=== PATIENT | female | born 1965 | race Caucasian/White ===

== ENCOUNTER 2016-08-15 10:29 | Emergency (ER) | payer BC ==
[~2016-08-15] VITALS: Ht 165.1 cm; Wt 74.0 kg
[2016-08-15 10:38] VITALS: Ht 165.1 cm; Wt 74.0 kg
[2016-08-15] MEDS ORDERED: OXYC1TAB3 PO (11:36)
[2016-08-15 12:19] LABS: BASO % 0.2 %; BASO ABS # 0.02 K/uL (0-0.2); COMPLETE YES; EOS % 0.3 %; HEMATOCRIT 43.8 % (37-47); IG% 0.4 %; LYMPH % 8.6 %; LYMPH ABS # 0.83 K/uL (1.2-3.4); MEAN CELL VOLUME 94.8 fL (80-100); MEAN CORPUSCULAR HEMOGLOBIN 32.5 pg (25-34); MEAN CORPUSCULAR HGB CONC 34.2 g/dl (32-36); NEUT % 82.5 %; PLATELET COUNT 118 K/uL (130-400); RED BLOOD COUNT 4.62 M/uL (4.2-5.4)
[2016-08-15 12:24] LABS: INR 1.2 (0.9-1.1); PARTIAL THROMBOPLASTIN RATIO 1.3; PROTHROMBIN TIME (PATIENT) 13.4 SECONDS (9.0-12.0)
[2016-08-15 12:30] LABS: BUN/CREATININE RATIO 16.2 (10-20); CALCIUM 9.4 mg/dl (8.5-10.1); CREATININE 0.85 mg/dl (0.60-1.20); POTASSIUM 4.3 mmol/L (3.5-5.1)
--- NOTE | 2016-08-15 12:30 | EMERGENCY ROOM VISIT NOTE ---
History Report prepared by Primitivo: Mackenzie Murray Under the Supervision of: Dr. Bill Nath D.O. First contact with patient: 11:53 Chief Complaint: REFERRED BY DOCTOR Stated Complaint: FLUID IN ABDOMIN, HAS BREAST CANCER History of Present Illness The patient is a 51 year old female who presents to the Emergency Room with complaints of persistent abdominal distention starting about 4 days ago. She reports some chest tightness but denies any difficulty breathing. She is currently not in any pain. She denies any fevers, chills, chest pain, abdominal pain, urinary symptoms, or any other complaints. The patient has a history of breast cancer with metastasis to liver which was diagnosed last year. She is not actively receiving treatment anymore. Her last chemotherapy treatment was about a week and a half ago. She denies any radiation treatment. She is not currently on any blood thinners. She had an ultrasound last week which showed gallstones but was otherwise negative. She was referred to the Emergency Room by her oncologist for a possible paracentesis procedure. If needed, the patient does not want CPR and she does not have a living will. Source of History: patient Onset: about 4 days ago Position: abdomen Symptom Intensity: No pain currently Quality: other (distention) Timing: other (persistent) Associated Symptoms: No SOB, No abdominal pain, No chest pain, No chills, No fevers, No urinary symptoms Review of Systems See above for pertinent positives & negatives. A total of 10 systems reviewed and were otherwise negative. Past Medical & Surgical Medical Problems: (1) Breast cancer metastasized to liver Family History Patient reports no known family medical history. Social History Smoking Status: Former Smoker Marital Status: Occupation Status: employed Current/Historical Medications Scheduled PRN Oxycodone Ir (Roxicodone Ir), 5 MG PO Q4H PRN for Severe Pain Allergies Coded Allergies: No Known Allergies (Unverified , 08/15/16) Physical Exam Vital Signs Date Time Temp Pulse Resp B/P Pulse Ox O2 Delivery O2 Flow Rate FiO2 08/15/16 14:53 106 18 121/79 94 Room Air 08/15/16 14:16 37.1 116 116/88 97 08/15/16 13:27 37.2 120 123/81 95 08/15/16 12:24 117 18 111/95 94 Room Air 3/23/17 10:38 36.8 134 18 118/82 95 Room Air Physical Exam GENERAL: Patient is well appearing and in no acute distress. HEENT: No acute trauma, normocephalic atraumatic, mucous membranes moist, no nasal congestion, scleral icterus. NECK: No stridor, no adenopathy, no meningismus, trachea is midline. LUNGS: No dyspnea. Clear to auscultation and equal bilaterally. No wheeze, no rhonchi. HEART: Tachycardic rate and normal rhythm. No murmurs, rubs, gallops appreciated. ABDOMEN: Soft, protruded abdomen with positive fluid waves, nontender, bowel sounds positive, no masses appreciated, no peritonitis. BACK: No midline tenderness, no CVA tenderness EXTREMITIES: Normal motion all extremities, no cyanosis, no peripheral edema. NEUROLOGIC: Alert and oriented, no acute motor or sensory deficits, no focal weakness, cranial nerves grossly intact. SKIN: No rash, no jaundice, no diaphoresis. Medical Decision & Procedures ER Provider Diagnostic Interpretation: Xray results as stated below per my and radiologist interpretation: CHEST 2 VIEWS ROUTINE HISTORY: effusion, stage 4 breast CA COMPARISON: PET CT 10/06/2013. FINDINGS: No pneumothorax. Left subclavian Port-A-Cath terminates in the proximal SVC. The heart is normal in size. There are innumerable bilateral pulmonary nodules consistent with metastatic disease. Mild elevation of the right hemidiaphragm, unchanged. Cholelithiasis. Suspect trace bilateral pleural effusions. IMPRESSION: 1. Innumerable bilateral pulmonary nodules consistent with metastatic disease. 2. Mild elevation of the right hemidiaphragm which is not significantly changed. 3. Suspect trace bilateral pleural effusions. Electronically signed by: Yemi Cam M.D. 08/15/2016 1:04 PM Dictated Date/Time: 08/15/2016 1:02 PM As per my interpretation; Diffuse widespread metastatic disease. Laboratory Results 08/15/16 11:43 Red Blood Count 4.62, Mean Corpuscular Volume 94.8, Mean Corpuscular Hemoglobin 32.5, Mean Corpuscular Hemoglobin Concent 34.2, Mean Platelet Volume 10.0, Neutrophils (%) (Auto) 82.5, Lymphocytes (%) (Auto) 8.6, Monocytes (%) (Auto) 8.0, Eosinophils (%) (Auto) 0.3, Basophils (%) (Auto) 0.2, Neutrophils # (Auto) 7.91, Lymphocytes # (Auto) 0.83, Monocytes # (Auto) 0.77, Eosinophils # (Auto) 0.03, Basophils # (Auto) 0.02 08/15/16 11:43 Test 08/15/16 11:43 08/15/16 14:13 White Blood Count 9.60 K/uL (4.8-10.8) Red Blood Count 4.62 M/uL (4.2-5.4) Hemoglobin 15.0 g/dL (12.0-16.0) Hematocrit 43.8 % (37-47) Mean Corpuscular Volume 94.8 fL (80-100) Mean Corpuscular Hemoglobin 32.5 pg (25-34) Mean Corpuscular Hemoglobin Concent 34.2 g/dl (32-36) Platelet Count 118 K/uL (130-400) Mean Platelet Volume 10.0 fL (7.4-10.4) Neutrophils (%) (Auto) 82.5 % Lymphocytes (%) (Auto) 8.6 % Monocytes (%) (Auto) 8.0 % Eosinophils (%) (Auto) 0.3 % Basophils (%) (Auto) 0.2 % Neutrophils # (Auto) 7.91 K/uL (1.4-6.5) Lymphocytes # (Auto) 0.83 K/uL (1.2-3.4) Monocytes # (Auto) 0.77 K/uL (0.11-0.59) Eosinophils # (Auto) 0.03 K/uL (0-0.5) Basophils # (Auto) 0.02 K/uL (0-0.2) RDW Standard Deviation 61.7 fL (36.4-46.3) RDW Coefficient of Variation 17.9 % (11.5-14.5) Immature Granulocyte % (Auto) 0.4 % Immature Granulocyte # (Auto) 0.04 K/uL (0.00-0.02) Prothrombin Time 13.4 SECONDS (9.0-12.0) Prothromb Time International Ratio 1.2 (0.9-1.1) Activated Partial Thromboplast Time 33.1 SECONDS (21.0-31.0) Partial Thromboplastin Ratio 1.3 Anion Gap 12.0 mmol/L (3-11) Est Creatinine Clear Calc Drug Dose 79.7 ml/min Estimated GFR () 92.6 Estimated GFR (Non- 79.9 BUN/Creatinine Ratio 16.2 (10-20) Calcium Level 9.4 mg/dl (8.5-10.1) Total Bilirubin 5.5 mg/dl (0.2-1) Direct Bilirubin 2.2 mg/dl (0-0.2) Aspartate Amino Transf (AST/SGOT) 136 U/L (15-37) Alanine Aminotransferase (ALT/SGPT) 38 U/L (12-78) Alkaline Phosphatase 571 U/L (45-117) Total Protein 7.3 gm/dl (6.4-8.2) Albumin 3.0 gm/dl (3.4-5.0) Lipase 100 U/L (73-393) Peritoneal Fluid Total Protein 2.0 g/dl Peritoneal Fluid Albumin 1.1 g/dl Peritoneal Fluid LDH 126 IU Peritoneal Fluid Glucose 89 mg/dl Peritoneal Fluid Amylase 12 U/L Peritoneal Fluid Lipase 30 U/L Laboratory results as reviewed by me. Medications Administered Medications (Trade) Dose Ordered Sig/Rhoda Route Start Time Stop Time Status Last Admin Dose Admin Albumin Human (Albumin 25%) 25 gm ONE ONCE IV 08/15/16 13:15 08/15/16 13:16 DC 08/15/16 13:27 25 GM Procedure Limited bedside ultrasound: DVT 2 point compression negative. Procedure Date: 08/15/2016 Procedure: Diagnostic and therapeutic paracentesis Pre-procedure Diagnosis: Ascites Post-procedure Diagnosis: same as above Prior to Procedure: Informed Consent: The risks, benefits, indications, potential complications, and alternatives were explained to the patient and informed consent obtained. Attending Staff: Shannon Nath DO Skin Prep: Cleansed with chlorhexidine. Anesthesia: Lidocaine 1% without epinephrine 1 mL Indications: Metastatic breast cancer with reported metastases to the liver and new onset ascites, respiratory difficulties secondary to elevated diaphragm. The identity of the patient was confirmed and a bedside time out was performed. Description of Procedure: Static ultrasound guidance was used, the right lower quadrant was sterilized with chlorhexidine and a full sterile barrier precautions, the skin and subcutaneous tissue was infiltrated with local anesthetic. A 7 [place] central venous catheter was inserted into the peritoneal space. 800 MLS of dark yellow peritoneal fluid was removed Specimens: Sent for Gram stain and culture, cell count, cytology total protein amylase LDH Findings: 800 mL ascitic fluid removed Estimated blood loss: 0 Complications: Patient tolerated the procedure well ED Course 1153: The patient was evaluated in room C03. A complete history and physical exam was performed. 1315: Albumin Human 25 gm IV 1328: I performed paracentesis. Refer to procedure note for further details. 1415: The patient feels much better. 1459: Reevaluated the patient. Discussed results and discharge instructions: She verbalized understanding and agreement. The patient is ready for discharge. Medical Decision Differential diagnosis includes but is not limited to PE, portal venous thrombus , progression of metastatic disease, Hepatic insufficiency, hepatitis C, CHF. Impression Primary Impression: Breast cancer metastasized to liver Additional Impressions: Ascites Bilateral pleural effusion Thrombocytopenia Transaminitis Elevated serum alkaline phosphatase level Scribe Attestation The scribe's documentation has been prepared under my direction and personally reviewed by me in its entirety. I confirm that the note above accurately reflects all work, treatment, procedures, and medical decision making performed by me. Departure Information Dispostion Home / Self-Care Referrals No Doctor Assigned Forms HOME CARE DOCUMENTATION FORM, IMPORTANT VISIT INFORMATION, WORK / SCHOOL INSTRUCTIONS Patient Instructions My [facility], Paracentesis Additional Instructions Your platelets today were 118. Total bilirubin 5.5, direct bilirubin 2.2 Your AST, liver function test was elevated at 136, your alkaline phosphatase was 571. Your albumin was mildly low at 3.0 You underwent a paracentesis today and 800 mL of fluid was removed. This fluid was sent for cytology it will take several days for the results, request these results to be forwarded to your oncologist. Return immediately for severe abdominal pain, fevers greater than 101, or any other concerns. You want to have a low salt diet and limit your fluid intake to around 2 L a day. Problem Qualifiers
--- NOTE | 2016-08-15 13:05 | DIAGNOSTIC IMAGING REPORT ---
CHEST 2 VIEWS ROUTINE HISTORY: effusion, stage 4 breast CA COMPARISON: PET CT 10/06/2013. FINDINGS: No pneumothorax. Left subclavian Port-A-Cath terminates in the proximal SVC. The heart is normal in size. There are innumerable bilateral pulmonary nodules consistent with metastatic disease. Mild elevation of the right hemidiaphragm, unchanged. Cholelithiasis. Suspect trace bilateral pleural effusions. IMPRESSION: 1. Innumerable bilateral pulmonary nodules consistent with metastatic disease. 2. Mild elevation of the right hemidiaphragm which is not significantly changed. 3. Suspect trace bilateral pleural effusions. Electronically signed by: Yemi Cam M.D. 08/15/2016 1:04 PM Dictated Date/Time: 08/15/2016 1:02 PM
[2016-08-15] MEDS ORDERED: ALBUMIN HUMAN 25% 12.5 GM/50 ML VIAL IV ONE (13:15)
[2016-08-15 14:16] VITALS: TEMP 37.1
[2016-08-15 15:18] VITALS: BP 121/79; PULSE 106; O2SAT 94
[2016-08-15 15:22] LABS: PERIT FL WBC 221 /uL (0-300); PERITONEAL FLUID RBC < 3000 /uL
== END 2016-08-15 15:18 | disposition home or self-care (01) ==
LOC: C.EDB 10:31 → C.EDC 15:18
DX: C50.919 Malignant neoplasm of unspecified site of unspecified female breast (principal); C78.7 Secondary malignant neoplasm of liver and intrahepatic bile duct; R18.8 Other ascites; J90 Pleural effusion, not elsewhere classified; D69.6 Thrombocytopenia, unspecified; R74.0 Nonspecific elevation of levels of transaminase and lactic acid dehydrogenase [LDH]; R74.8 Abnormal levels of other serum enzymes; Z87.891 Personal history of nicotine dependence

== ENCOUNTER 2016-08-27 10:40 | Emergency (ER) | payer BC ==
[~2016-08-27] VITALS: Ht 165.1 cm; Wt 74.5 kg
[~2016-08-27 10:40] MED LIST: OXYC1TAB3 PO
[2016-08-27 10:46] VITALS: Ht 165.1 cm; Wt 74.5 kg
--- NOTE | 2016-08-27 11:32 | EMERGENCY ROOM VISIT NOTE ---
History Report prepared by Primitivo: Ny Castro Under the Supervision of: Dr. Mushtaq Sullivan M.D. First contact with patient: 11:18 Chief Complaint: ABDOMINAL PAIN Stated Complaint: ABDOMINAL PAIN History of Present Illness The patient is a 51 year old female who presents to the Emergency Room with complaints of persistent diffuse abdominal pain that began a few days ago. She also complains of abdominal distension. The patient has a history of breast cancer with metastasis to the liver. [facility] [place]. The patient does not have an oncologist or PCP locally. She had a bilateral mastectomy. The patient was being treated for her cancer with chemotherapy, but it is on hold due to her abdominal problems. She was in the emergency room August 15 with similar symptoms and had paracentesis performed in the ED and was discharged home. The patient has not noticed any recent skin or eye color changes. Denies leg swelling or other complaints. Source of History: patient Onset: a few days ago Position: abdomen Timing: other (persistent) Note: Other symptoms: abdominal distension Review of Systems All systems have been listed, reviewed, and are negative other than those previously mentioned. Please see Additional Medical History Sheet. Past Medical & Surgical Medical Problems: (1) Breast cancer metastasized to liver Family History Patient reports no known family medical history. Social History Smoking Status: Former Smoker Marital Status: Occupation Status: employed Current/Historical Medications Scheduled PRN Oxycodone Ir (Roxicodone Ir), 5 MG PO Q4H PRN for Severe Pain Allergies Coded Allergies: No Known Allergies (Unverified , 08/27/16) Physical Exam Vital Signs Date Time Temp Pulse Resp B/P Pulse Ox O2 Delivery O2 Flow Rate FiO2 08/27/16 16:47 95 20 99/66 92 08/27/16 16:00 105/80 08/27/16 15:40 124 28 94 08/27/16 15:30 99/75 08/27/16 15:12 94 16 98/74 95 Room Air 08/27/16 15:10 117 32 94 08/27/16 15:09 98/74 08/27/16 14:03 96 20 103/85 92 Room Air 08/27/16 14:01 103/85 08/27/16 13:40 107 26 93 08/27/16 13:10 110 32 93 08/27/16 13:06 94 T-piece 08/27/16 13:01 110 08/27/16 12:54 104/74 08/27/16 12:51 114 16 104/74 98 Room Air 08/27/16 10:46 118 20 124/84 95 Room Air Physical Exam GENERAL: Patient awake, alert, oriented x 3. Patient is in no significant distress. Patient follows commands. Patient does not appear toxic. Patient is adequately hydrated and well-nourished. SKIN: No erythema, pallor, cyanosis or rash. Patient appears slightly jaundiced. HEENT: Normal head, pupils equal, reactive to light and accommodation. Patient has scleral icterus. Ears normal. Oral cavity and posterior pharynx appear normal. Neck: Without adenopathy, no neck vein distention. LUNGS: Clear to auscultation. No wheezes, no rales, no rhonchi. HEART: No murmurs. No gallops. No rubs ABDOMEN: Ascites with a fluid wave.Nontender. No masses, no rebound, no hepatomegaly or splenomegaly. EXTREMITIES: No signs of trauma. No pedal or pretibial edema. No calf or thigh tenderness. NEUROLOGIC: Cranial nerves II-XII within normal limits. No gross motor sensory function deficits. Medical Decision & Procedures ER Provider Diagnostic Interpretation: Radiology results as stated below per my review and radiologist interpretation: PARACENTESIS UNDER ULTRASOUND GUIDANCE CLINICAL HISTORY: ascites COMPARISON STUDY: No previous studies for comparison. FINDINGS: The risks, benefits, and alternatives to the procedure were discussed with the patient. Written informed consent was obtained. Following real-time ultrasound localization, the skin was prepped and draped. Following local anesthesia with Xylocaine, the sheath paracentesis needle was inserted and approximately 2 liters of straw-colored fluid was removed by vacuum suction. 1 L was sent to the laboratory. A left lower quadrant approach was utilized. The patient tolerated the procedure well and left the department in satisfactory condition. IMPRESSION: Successful ultrasound-guided paracentesis with removal of approximately 2 liters of ascitic fluid. Electronically signed by: Daniele Clement M.D. 08/27/2016 3:03 PM Dictated Date/Time: 08/27/2016 3:02 PM Laboratory Results 08/27/16 12:45 Red Blood Count 4.65, Mean Corpuscular Volume 94.0, Mean Corpuscular Hemoglobin 31.8, Mean Corpuscular Hemoglobin Concent 33.9, Mean Platelet Volume 9.5, Neutrophils (%) (Auto) 84.7, Lymphocytes (%) (Auto) 6.6, Monocytes (%) (Auto) 8.1, Eosinophils (%) (Auto) 0.1, Basophils (%) (Auto) 0.2, Neutrophils # (Auto) 8.65, Lymphocytes # (Auto) 0.67, Monocytes # (Auto) 0.83, Eosinophils # (Auto) 0.01, Basophils # (Auto) 0.02 08/27/16 12:45 Test 08/27/16 00:00 08/27/16 12:05 08/27/16 12:45 Peritoneal Fluid Color YELLOW Peritoneal Fluid Appearance CLEAR Peritoneal Fluid WBC 252 /uL (0-300) Peritoneal Fluid RBC 3000 /uL Peritoneal Fld Mononuclear WBCs (%) 44.6 % Peritoneal Fld Polynuclear WBCs (%) 55.4 % Peritoneal Fluid Total Protein 2.2 g/dl Peritoneal Fluid Albumin 1.1 g/dl Peritoneal Fluid LDH 164 IU Peritoneal Fluid Glucose 104 mg/dl Peritoneal Fluid Lipase 34 U/L Urine Color NELSON Urine Appearance CLOUDY (CLEAR) Urine pH 5.5 (4.5-7.5) Urine Specific [place] 1.033 (1.000-1.030) Urine Protein 2+ (NEG) Urine Glucose (UA) NEG (NEG) Urine Ketones NEG (NEG) Urine Occult Blood NEG (NEG) Urine Nitrite POS (NEG) Urine Bilirubin 2+ (NEG) Urine Urobilinogen NEG (NEG) Urine Leukocyte Esterase SMALL (NEG) Urine RBC 0-4 /hpf (0-4) Urine WBC 5-10 /hpf (0-5) Urine Epithelial Cells >30 /lpf (0-5) Urine Bacteria 1+ (NEG) Urine Mucus PRESENT (NONE PRSENT) Urine Yeast BUDDING (NONE PRSENT) White Blood Count 10.21 K/uL (4.8-10.8) Red Blood Count 4.65 M/uL (4.2-5.4) Hemoglobin 14.8 g/dL (12.0-16.0) Hematocrit 43.7 % (37-47) Mean Corpuscular Volume 94.0 fL (80-100) Mean Corpuscular Hemoglobin 31.8 pg (25-34) Mean Corpuscular Hemoglobin Concent 33.9 g/dl (32-36) Platelet Count 110 K/uL (130-400) Mean Platelet Volume 9.5 fL (7.4-10.4) Neutrophils (%) (Auto) 84.7 % Lymphocytes (%) (Auto) 6.6 % Monocytes (%) (Auto) 8.1 % Eosinophils (%) (Auto) 0.1 % Basophils (%) (Auto) 0.2 % Neutrophils # (Auto) 8.65 K/uL (1.4-6.5) Lymphocytes # (Auto) 0.67 K/uL (1.2-3.4) Monocytes # (Auto) 0.83 K/uL (0.11-0.59) Eosinophils # (Auto) 0.01 K/uL (0-0.5) Basophils # (Auto) 0.02 K/uL (0-0.2) RDW Standard Deviation 64.0 fL (36.4-46.3) RDW Coefficient of Variation 19.7 % (11.5-14.5) Immature Granulocyte % (Auto) 0.3 % Immature Granulocyte # (Auto) 0.03 K/uL (0.00-0.02) Prothrombin Time 17.1 SECONDS (9.0-12.0) Prothromb Time International Ratio 1.6 (0.9-1.1) Activated Partial Thromboplast Time 37.3 SECONDS (21.0-31.0) Partial Thromboplastin Ratio 1.4 Anion Gap 15.0 mmol/L (3-11) Est Creatinine Clear Calc Drug Dose 61.8 ml/min Estimated GFR () 67.8 Estimated GFR (Non- 58.5 BUN/Creatinine Ratio 17.2 (10-20) Calcium Level 9.6 mg/dl (8.5-10.1) Total Bilirubin 6.2 mg/dl (0.2-1) Aspartate Amino Transf (AST/SGOT) 302 U/L (15-37) Alanine Aminotransferase (ALT/SGPT) 99 U/L (12-78) Alkaline Phosphatase 470 U/L (45-117) Ammonia 36.0 umol/L (11-32) Total Protein 6.7 gm/dl (6.4-8.2) Albumin 3.1 gm/dl (3.4-5.0) Globulin 3.6 gm/dl (2.5-4.0) Albumin/Globulin Ratio 0.9 (0.9-2) Lipase 82 U/L (73-393) Laboratory results as stated above per my review. Medications Administered Medications (Trade) Dose Ordered Sig/Rhoda Route Start Time Stop Time Status Last Admin Dose Admin Heparin Sodium (Porcine) (Heparin 100 Unit/ml 5ml Flush) 10 ml STK-MED ONCE .ROUTE 08/27/16 12:18 08/27/16 12:19 DC 08/27/16 12:17 5 ML Miscellaneous Information (Nursing Verbal Med Order) 1 ea ONE ONCE N/A 08/27/16 12:30 08/27/16 12:31 DC 08/27/16 12:30 1 EA Alteplase, Recombinant (Activase Cathflo) 2 mg TODAY@1300 ONCE IV 08/27/16 13:00 08/27/16 13:01 DC 08/27/16 13:12 2 MG Morphine Sulfate (MoRPHine SULFATE INJ) 8 mg ONE ONCE IV 08/27/16 15:45 08/27/16 15:47 DC 08/27/16 15:55 8 MG Fluconazole (Diflucan Tab) 150 mg ONE ONCE PO 08/27/16 16:15 08/27/16 16:16 DC 08/27/16 16:41 150 MG Heparin Sodium (Porcine) (Heparin 100 Unit/ml 5ml Flush) 5 ml STK-MED ONCE .ROUTE 08/27/16 16:38 08/27/16 16:39 DC 08/27/16 16:41 5 ML ED Course 1118: Past medical records reviewed. The patient was evaluated in room C5. A complete history and physical examination was performed. 1535 post-paracentesis the patient feels better but does have some re- exacerbation of her right shoulder pain. The patient was given IV morphine. 1602 Diflucan 150 mg PO Medical Decision Differential includes but is not limited to breast cancer with metastasis, ascites, metabolic disorder. Multiple labs and imaging were obtained. Please see above. The patient has evidence of liver failure related to her metastatic disease. These numbers are similar to what she experienced about 10 days ago. 2 L of fluid was drained off in radiology under ultrasound guidance. The patient tolerated the procedure well. Patient did get some additional pain medication while here. Yeast was noted in her urine and therefore she was given 1 dose of Diflucan here. I discussed care with her oncology group. Consults Time Called: [id number] Consulting Physician: Dolly [facility] at [facility] Returned Call: [phone] No change in therapy. Reported all lab results. Impression Primary Impression: Ascites Additional Impressions: Metastatic breast cancer Liver failure Scribe Attestation The scribe's documentation has been prepared under my direction and personally reviewed by me in its entirety. I confirm that the note above accurately reflects all work, treatment, procedures, and medical decision making performed by me. Departure Information Dispostion Home / Self-Care Referrals No Doctor, Assigned (PCP) Patient Instructions My [facility] Additional Instructions Continue all of your current medications as prescribed. Follow-up with [facility] oncology. Problem Qualifiers
[2016-08-27] MEDS ORDERED: NURSING VERBAL MED ORDER ONE (12:30)
[2016-08-27 12:40] LABS: URINE APPEARANCE CLOUDY (CLEAR); URINE NITRITE POS (NEG); URINE PH 5.5 (4.5-7.5); URINE SPECIFIC GRAVITY 1.033 (1.000-1.030); UROBILINOGEN NEG (NEG)
[2016-08-27 12:42] LABS: MANUAL MICROSCOPIC REQUIRED? YES; REVIEW REQ? NO; URINE BILIRUBIN 2+ (NEG); URINE COLOR AMBER
[2016-08-27] MEDS ORDERED: ALTEPLASE, RECOMBINANT 1 MG/ML 2 ML VIAL IV ONE (13:00)
[2016-08-27 13:01] LABS: BASO % 0.2 %; BASO ABS # 0.02 K/uL (0-0.2); COMPLETE YES; EOS % 0.1 %; HEMATOCRIT 43.7 % (37-47); IG% 0.3 %; LYMPH % 6.6 %; LYMPH ABS # 0.67 K/uL (1.2-3.4); MEAN CORPUSCULAR HEMOGLOBIN 31.8 pg (25-34); MEAN CORPUSCULAR HGB CONC 33.9 g/dl (32-36); MEAN PLATELET VOLUME 9.5 fL (7.4-10.4); MONO % 8.1 %; NEUT % 84.7 %; PLATELET COUNT 110 K/uL (130-400); RED BLOOD COUNT 4.65 M/uL (4.2-5.4); WHITE BLOOD COUNT 10.21 K/uL (4.8-10.8)
[2016-08-27 13:02] LABS: URINE MUCUS PRESENT (NONE PRSENT)
[2016-08-27 13:03] LABS: URINE BACTERIA 1+ (NEG); URINE RBC 0-4 /hpf (0-4)
[2016-08-27 13:06] VITALS: O2SAT 94
[2016-08-27 13:09] LABS: ZZUR CULT IF INDIC CLEAN CATCH YES
[2016-08-27 13:12] LABS: INR 1.6 (0.9-1.1); PARTIAL THROMBOPLASTIN RATIO 1.4; PROTHROMBIN TIME (PATIENT) 17.1 SECONDS (9.0-12.0)
[2016-08-27 13:22] LABS: BUN/CREATININE RATIO 17.2 (10-20); CALCIUM 9.6 mg/dl (8.5-10.1); CREATININE 1.1 mg/dl (0.60-1.20); POTASSIUM 4.7 mmol/L (3.5-5.1)
[2016-08-27 13:30] LABS: ALB/GLOB RATIO 0.9 (0.9-2)
--- NOTE | 2016-08-27 15:05 | DIAGNOSTIC IMAGING REPORT ---
PARACENTESIS UNDER ULTRASOUND GUIDANCE CLINICAL HISTORY: ascites COMPARISON STUDY: No previous studies for comparison. FINDINGS: The risks, benefits, and alternatives to the procedure were discussed with the patient. Written informed consent was obtained. Following real-time ultrasound localization, the skin was prepped and draped. Following local anesthesia with Xylocaine, the sheath paracentesis needle was inserted and approximately 2 liters of straw-colored fluid was removed by vacuum suction. 1 L was sent to the laboratory. A left lower quadrant approach was utilized. The patient tolerated the procedure well and left the department in satisfactory condition. IMPRESSION: Successful ultrasound-guided paracentesis with removal of approximately 2 liters of ascitic fluid. Electronically signed by: Daniele Clement M.D. 08/27/2016 3:03 PM Dictated Date/Time: 08/27/2016 3:02 PM
[2016-08-27] MEDS ORDERED: MoRPHine SULFATE 10 MG/ML CARP/VIAL IV ONE (15:45)
[2016-08-27] MEDS ORDERED: FLUCONAZOLE 100 MG TAB PO ONE (16:15)
[2016-08-27 16:47] VITALS: BP 99/66; PULSE 95; O2SAT 92
[2016-08-27 17:11] LABS: PERIT FL WBC 252 /uL (0-300); PERITONEAL FLUID RBC 3000 /uL
--- NOTE | 2016-08-30 16:28 | Pharmacy Progress Note ---
ED Pharmacist Culture FollowUp Date of Service: Aug 30, 2016. Patient with Lactobacillus and yeast not Fanta albicans in urine. Given fluconazole 150 mg po x1 in ED. UA with significant epithelial cells. No urinary symptoms mentioned. Chemotherapy on hold 2nd abdominal issues. Likely contaminants - no intervention required. Case discussed w Dr. Ochoa.
== END 2016-08-27 16:49 | disposition home or self-care (01) ==
LOC: C.EDB 10:41 → C.EDC 16:49
DX: R18.8 Other ascites (principal); C50.919 Malignant neoplasm of unspecified site of unspecified female breast; C78.7 Secondary malignant neoplasm of liver and intrahepatic bile duct; K72.90 Hepatic failure, unspecified without coma; Z87.891 Personal history of nicotine dependence